=== PATIENT | female | born 1930 | race Caucasian/White ===

== ENCOUNTER 2020-06-07 12:05 | Inpatient (IN) ==
[2020-06-07 12:52] LABS: Basophils % 0.2 %
[2020-06-07 12:53] LABS: Eosinophils # 0.1 K/mcL (0.0-0.6); Eosinophils % 1.5 %; Hematocrit 16.5 % (35.3-44.9); Immature Granulocytes % 0.5 % (0-4); Lymphocytes # 0.6 K/mcL (0.6-4.6); Lymphocytes % 7.9 %; Mean Corpuscular HGB Conc 32.1 g/dL (31.6-35.5); Mean Corpuscular Hemoglobin 30.6 pg (28.0-33.3); Mean Corpuscular Volume 95.4 fL (83.0-100.0); Mean Platelet Volume 9.8 fL (9.4-12.4); Monocytes # 0.6 K/mcL (0.0-1.3); Monocytes % 6.9 %; Neutrophils # 6.7 K/mcL (1.6-8.9); Platelet Count 250 K/mcL (140-400); Red Blood Count 1.73 M/mcL (3.82-4.97); Red Cell Distribution Width 15.8 % (11.5-14.5); White Blood Count 8.1 K/mcL (4.3-11.1)
[2020-06-07 12:56] LABS: Hemoglobin 5.3 g/dL (11.5-15.4)
[2020-06-07 13:07] LABS: Calcium 9.7 mg/dL (8.6-10.3); Potassium 3.8 mEq/L (3.5-5.1)
[2020-06-07 13:10] LABS: Bilirubin,Urine Negative (Negative); Blood,Urine Negative (Negative); Clarity,Urine Clear (Clear); Color,Urine Light-Yellow (Yellow); Glucose,Urine (UA) Normal (Normal); Hyaline Casts,Urine Few per lpf (None Seen); Ketones,Urine Negative (Negative); Leukocyte Esterase,Urine Moderate (Negative); Mucus,Urine Few per lpf (None-Few); Nitrite,Urine Negative (Negative); Protein,Urine Trace mg/dL (Neg-Trace); RBC,Urine 0-3 per hpf (0-3); Specific Gravity,Urine 1.016 (1.010-1.025); Squamous Epithelial Cell,Urine Few per hpf (None-Few); Urobilinogen,Urine Normal (Normal); WBC,Urine 15-30 per hpf (0-3)
[2020-06-07 13:11] LABS: Troponin I 0.06 ng/mL (< 0.04)
[2020-06-07 13:13] LABS: INR 1.6; Prothrombin Time 18.6 Seconds (9.4-12.1)
[2020-06-07] MEDS ORDERED: Pantoprazole 40 MG VIAL IVP ONE (13:24)
[2020-06-07] MEDS ORDERED: Ondansetron 4 MG/2 ML VIAL IVP PRN (13:58)
[2020-06-07] MEDS ORDERED: Naloxone 0.4 MG/ML INJ IVP PRN (13:58)
[2020-06-07] MEDS ORDERED: 0.9 % Sodium Chloride 250 ML ONE ×2 (14:15→17:12)
[2020-06-07] MEDS ORDERED: Famotidine 20 MG TABLET PO PRN (14:57)
[2020-06-07 15:10] LABS: Troponin I 0.06 ng/mL (< 0.04)
[2020-06-07 15:31] LABS: Folate > 22.3 ng/mL (3.0-16.0); Vitamin B12 301 pg/mL (250-1100)
[2020-06-07] MEDS: Pantoprazole 40 MG VIAL IVP SCH (17:17)
[2020-06-07] MEDS ORDERED: Iron Sucrose Complex 400 MG in 0.9 % Sodium Chloride 250 ML IVPB ONE (18:56)
[2020-06-07] MEDS: Metoprolol XL (24 HR) Succ 50 MG TAB.ER.24H PO SCH (19:44)
[2020-06-08] MEDS: Pantoprazole 40 MG VIAL IVP SCH ×2 (05:54→17:13)
[2020-06-08 07:06] LABS: Hematocrit 23.7 % (35.3-44.9); Hemoglobin 7.8 g/dL (11.5-15.4)
[2020-06-08 07:07] LABS: Basophils % 0.3 %; Eosinophils # 0.1 K/mcL (0.0-0.6); Eosinophils % 1.9 %; Hematocrit 23.9 % (35.3-44.9); Hemoglobin 7.8 g/dL (11.5-15.4); Immature Granulocytes % 0.4 % (0-4); Lymphocytes # 0.9 K/mcL (0.6-4.6); Lymphocytes % 12.7 %; Mean Corpuscular HGB Conc 32.6 g/dL (31.6-35.5); Mean Corpuscular Hemoglobin 29.7 pg (28.0-33.3); Mean Corpuscular Volume 90.9 fL (83.0-100.0); Mean Platelet Volume 9.7 fL (9.4-12.4); Monocytes # 0.7 K/mcL (0.0-1.3); Monocytes % 9.8 %; Neutrophils # 5.5 K/mcL (1.6-8.9); Platelet Count 211 K/mcL (140-400); Red Blood Count 2.63 M/mcL (3.82-4.97); Red Cell Distribution Width 15.1 % (11.5-14.5); Segmented Neutrophils % 74.9 %; White Blood Count 7.3 K/mcL (4.3-11.1)
[2020-06-08 07:24] LABS: Calcium 9.1 mg/dL (8.6-10.3); Potassium 3.8 mEq/L (3.5-5.1)
[2020-06-08] MEDS: cloNIDine HCL 0.1 MG TABLET PO SCH (09:02)
[2020-06-08] MEDS: Furosemide 20 MG TABLET PO SCH (09:02)
[2020-06-08] MEDS: Metoprolol XL (24 HR) Succ 50 MG TAB.ER.24H PO SCH ×2 (09:02→20:25)
[2020-06-08] MEDS: Aspirin Enteric Coated 81 MG Tablet PO SCH (09:02)
[2020-06-08 11:02] LABS: Hematocrit 26.6 % (35.3-44.9); Hemoglobin 8.5 g/dL (11.5-15.4)
[2020-06-08 14:47] LABS: Hematocrit 25.2 % (35.3-44.9); Hemoglobin 8.4 g/dL (11.5-15.4)
[2020-06-09 04:29] LABS: Hematocrit 24.4 % (35.3-44.9); Hemoglobin 7.7 g/dL (11.5-15.4); Mean Corpuscular HGB Conc 31.6 g/dL (31.6-35.5); Mean Corpuscular Hemoglobin 29.3 pg (28.0-33.3); Mean Corpuscular Volume 92.8 fL (83.0-100.0); Platelet Count 223 K/mcL (140-400); Red Blood Count 2.63 M/mcL (3.82-4.97); Red Cell Distribution Width 15.2 % (11.5-14.5); White Blood Count 6.1 K/mcL (4.3-11.1)
[2020-06-09 04:45] LABS: Calcium 9.7 mg/dL (8.6-10.3); Potassium 3.9 mEq/L (3.5-5.1)
[2020-06-09] MEDS: Pantoprazole 40 MG VIAL IVP SCH ×2 (06:07→16:18)
[2020-06-09] MEDS: Aspirin Enteric Coated 81 MG Tablet PO SCH (08:43)
[2020-06-09] MEDS: Furosemide 20 MG TABLET PO SCH (08:44)
[2020-06-09] MEDS: Metoprolol XL (24 HR) Succ 50 MG TAB.ER.24H PO SCH ×2 (08:44→20:30)
[2020-06-09] MEDS: cloNIDine HCL 0.1 MG TABLET PO SCH (08:44)
[2020-06-09 12:28] LABS: Hematocrit 24.7 % (35.3-44.9); Hemoglobin 7.9 g/dL (11.5-15.4)
[2020-06-09] MEDS: calcitrioL 0.25 MCG CAPSULE PO SCH (16:18)
[2020-06-10 00:27] LABS: Hematocrit 23.5 % (35.3-44.9); Hemoglobin 7.4 g/dL (11.5-15.4)
[2020-06-10 02:49] LABS: Hematocrit 24.1 % (35.3-44.9); Hemoglobin 7.7 g/dL (11.5-15.4); Mean Corpuscular Hemoglobin 30.3 pg (28.0-33.3); Mean Corpuscular Volume 94.9 fL (83.0-100.0); Mean Platelet Volume 9.8 fL (9.4-12.4); Platelet Count 248 K/mcL (140-400); Red Blood Count 2.54 M/mcL (3.82-4.97); Red Cell Distribution Width 15.1 % (11.5-14.5); White Blood Count 7.1 K/mcL (4.3-11.1)
[2020-06-10] MEDS: Pantoprazole 40 MG VIAL IVP SCH (05:24)
[2020-06-10] MEDS: cloNIDine HCL 0.1 MG TABLET PO SCH (07:51)
[2020-06-10] MEDS: Aspirin Enteric Coated 81 MG Tablet PO SCH (07:51)
[2020-06-10] MEDS: Metoprolol XL (24 HR) Succ 50 MG TAB.ER.24H PO SCH ×2 (07:51→20:19)
[2020-06-10] MEDS: Furosemide 20 MG TABLET PO SCH (07:51)
[2020-06-10] MEDS ORDERED: Lidocaine -MPF 2% 2 ML VIAL ONE (14:10)
[2020-06-10] MEDS ORDERED: *HR* PHENYLEPHRINE 1,000 MCG/10 ML SYRINGE IVP ONE (15:04)
[2020-06-10] MEDS ORDERED: 0.9 % Sodium Chloride 500 ML ONE (15:41)
[2020-06-10] MEDS ORDERED: 0.9 % Sodium Chloride 500 ML IVC ONE (15:46)
[2020-06-10] MEDS ORDERED: *HR* Metoprolol 5 MG/5 ML VIAL IVP ONE (22:13)
[2020-06-11] MEDS ORDERED: Albumin 25% 25gram/100mL 25 GM/100 ML IV.SOLN IVPB ONE (01:21)
[2020-06-11] MEDS ORDERED: 0.9 % Sodium Chloride 250 ML IVC ONE (03:18)
[2020-06-11 06:16] LABS: Hematocrit 19.1 % (35.3-44.9); Mean Corpuscular HGB Conc 31.4 g/dL (31.6-35.5); Mean Corpuscular Hemoglobin 29.7 pg (28.0-33.3); Mean Corpuscular Volume 94.6 fL (83.0-100.0); Mean Platelet Volume 10.1 fL (9.4-12.4); Platelet Count 196 K/mcL (140-400); Red Blood Count 2.02 M/mcL (3.82-4.97); Red Cell Distribution Width 14.9 % (11.5-14.5)
[2020-06-11 06:28] LABS: White Blood Count 15.8 K/mcL (4.3-11.1)
[2020-06-11] MEDS ORDERED: 0.9 % Sodium Chloride 250 ML ONE ×3 (07:45→14:30)
[2020-06-11] MEDS: Metoprolol XL (24 HR) Succ 50 MG TAB.ER.24H PO SCH ×2 (08:03→20:17)
[2020-06-11] MEDS: Aspirin Enteric Coated 81 MG Tablet PO SCH (09:12)
[2020-06-11] MEDS: Pantoprazole 40 MG VIAL IVP SCH ×2 (09:12→18:47)
[2020-06-11 09:31] LABS: Hematocrit 20.1 % (35.3-44.9); Hemoglobin 6.3 g/dL (11.5-15.4)
[2020-06-11 09:38] LABS: Calcium 9.2 mg/dL (8.6-10.3); Potassium 4.4 mEq/L (3.5-5.1)
[2020-06-11] MEDS: calcitrioL 0.25 MCG CAPSULE PO SCH (15:28)
[2020-06-11 19:31] LABS: Hematocrit 32.3 % (35.3-44.9)
[2020-06-11 19:33] LABS: Hemoglobin 10.7 g/dL (11.5-15.4)
[2020-06-11 21:34] LABS: Hematocrit 32.5 % (35.3-44.9); Hemoglobin 10.9 g/dL (11.5-15.4)
[2020-06-12 01:17] LABS: Basophils % 0.1 %; Eosinophils % 0.1 %; Hematocrit 31.8 % (35.3-44.9); Hemoglobin 10.7 g/dL (11.5-15.4); Immature Granulocytes % 0.9 % (0-4); Mean Corpuscular HGB Conc 33.6 g/dL (31.6-35.5); Mean Corpuscular Hemoglobin 31.1 pg (28.0-33.3); Mean Corpuscular Volume 92.4 fL (83.0-100.0); Mean Platelet Volume 10.1 fL (9.4-12.4); Monocytes # 1.4 K/mcL (0.0-1.3); Monocytes % 6.8 %; Neutrophils # 17.6 K/mcL (1.6-8.9); Platelet Count 181 K/mcL (140-400); Red Blood Count 3.44 M/mcL (3.82-4.97); Red Cell Distribution Width 14.6 % (11.5-14.5); Segmented Neutrophils % 87.1 %; White Blood Count 20.2 K/mcL (4.3-11.1)
[2020-06-12 01:33] LABS: Calcium 9.7 mg/dL (8.6-10.3); Magnesium 1.3 mg/dL (1.6-2.6); Phosphorous 1.8 mg/dL (2.7-4.5); Potassium 4.2 mEq/L (3.5-5.1)
[2020-06-12 05:31] LABS: Hematocrit 32.2 % (35.3-44.9); Hemoglobin 10.6 g/dL (11.5-15.4)
[2020-06-12] MEDS: Pantoprazole 40 MG VIAL IVP SCH ×2 (06:53→17:03)
[2020-06-12 07:44] LABS: Bilirubin,Urine Negative (Negative); Blood,Urine Negative (Negative); Clarity,Urine Clear (Clear); Color,Urine Light-Yellow (Yellow); Glucose,Urine (UA) Normal (Normal); Ketones,Urine Negative (Negative); Leukocyte Esterase,Urine Moderate (Negative); Nitrite,Urine Negative (Negative); PH,Urine 6.5 pH Units (5.0-8.0); Protein,Urine Negative (Neg-Trace); RBC,Urine 0-3 per hpf (0-3); Specific Gravity,Urine 1.007 (1.010-1.025); Squamous Epithelial Cell,Urine Few per hpf (None-Few); Urobilinogen,Urine Normal (Normal)
[2020-06-12 08:01] LABS: Hematocrit 34.7 % (35.3-44.9); Hemoglobin 11.4 g/dL (11.5-15.4)
[2020-06-12] MEDS: Metoprolol XL (24 HR) Succ 50 MG TAB.ER.24H PO SCH ×2 (08:06→20:03)
[2020-06-13] MEDS: Pantoprazole 40 MG VIAL IVP SCH (05:39)
[2020-06-13 07:35] VITALS: BP 155/73
[2020-06-13] MEDS: Metoprolol XL (24 HR) Succ 50 MG TAB.ER.24H PO SCH (08:31)
[2020-06-13 10:12] LABS: Basophils % 0.1 %; Eosinophils # 0.2 K/mcL (0.0-0.6); Eosinophils % 1.5 %; Hematocrit 33.7 % (35.3-44.9); Hemoglobin 10.9 g/dL (11.5-15.4); Immature Granulocytes % 0.6 % (0-4); Lymphocytes # 0.8 K/mcL (0.6-4.6); Lymphocytes % 6.2 %; Mean Corpuscular HGB Conc 32.3 g/dL (31.6-35.5); Mean Corpuscular Hemoglobin 30.2 pg (28.0-33.3); Mean Corpuscular Volume 93.4 fL (83.0-100.0); Mean Platelet Volume 10.1 fL (9.4-12.4); Monocytes # 0.7 K/mcL (0.0-1.3); Monocytes % 5.7 %; Neutrophils # 10.6 K/mcL (1.6-8.9); Platelet Count 190 K/mcL (140-400); Red Blood Count 3.61 M/mcL (3.82-4.97); Red Cell Distribution Width 15.5 % (11.5-14.5); Segmented Neutrophils % 85.9 %; White Blood Count 12.3 K/mcL (4.3-11.1)
[2020-06-13 10:29] LABS: Calcium 9.9 mg/dL (8.6-10.3); Magnesium 1.9 mg/dL (1.6-2.6); Phosphorous 2.7 mg/dL (2.7-4.5); Potassium 4.1 mEq/L (3.5-5.1)
[2020-06-13] MEDS ORDERED: FLU Vac QV 20-21 (6Month+)/PF 0.5 ML SYRINGE IM ONE (11:34)
== END 2020-06-13 12:17 | disposition home or self-care (01) | DRG 377 ==
LOC: 2ANU 12:05 → EMEROOARM 12:05 → SUATTDRO 14:26 → 2ANU 15:50
PROVIDERS: ADMIT Internal Medicine; ATTEND Internal Medicine
PROC: ENDOEBX (2020-06-10 13:55)

== ENCOUNTER 2020-07-25 08:17 | Observation (INO) ==
[2020-07-25] MEDS ORDERED: cefTRIAXone 1,000 MG in Water for inj. (sterile) 10 ML IVP ONE (08:24)
[2020-07-25] MEDS ORDERED: 0.9 % Sodium Chloride 1,000 ML IVC ONE (08:24)
[2020-07-25 09:11] LABS: Basophils % 0.4 %; Eosinophils # 0.1 K/mcL (0.0-0.6); Eosinophils % 0.6 %; Hematocrit 40.2 % (35.3-44.9); Hemoglobin 12.5 g/dL (11.5-15.4); Immature Granulocytes % 0.3 % (0-4); Lymphocytes # 1.9 K/mcL (0.6-4.6); Lymphocytes % 23.6 %; Mean Corpuscular HGB Conc 31.1 g/dL (31.6-35.5); Mean Corpuscular Hemoglobin 30.2 pg (28.0-33.3); Mean Corpuscular Volume 97.1 fL (83.0-100.0); Mean Platelet Volume 10.3 fL (9.4-12.4); Monocytes # 0.7 K/mcL (0.0-1.3); Monocytes % 8.6 %; Neutrophils # 5.2 K/mcL (1.6-8.9); Platelet Count 201 K/mcL (140-400); Red Blood Count 4.14 M/mcL (3.82-4.97); Red Cell Distribution Width 17.1 % (11.5-14.5); Segmented Neutrophils % 66.5 %; White Blood Count 7.9 K/mcL (4.3-11.1)
[2020-07-25 09:28] LABS: Activated Partial Thrombo Time 29.7 Seconds (26.0-36.0); INR 1.3; Prothrombin Time 15.2 Seconds (9.4-12.1)
[2020-07-25 09:33] LABS: Albumin/Globulin Ratio 1.3 (1.1-2.2); Bilirubin,Direct 0.4 mg/dL (0.0-0.2); Bilirubin,Indirect 0.6 mg/dL (0.0-1.0); Calcium 10.9 mg/dL (8.6-10.3); Globulin 3.1 g/dL (2.4-3.5); Potassium 4.6 mEq/L (3.5-5.1); Total Protein 7.1 g/dL (6.4-8.9)
[2020-07-25 09:38] LABS: Troponin I 0.06 ng/mL (< 0.04)
[2020-07-25] MEDS ORDERED: Aspirin 81 MG TAB.CHEW PO ONE (09:38)
[2020-07-25 09:51] LABS: Bacteria,Urine Few per hpf (None-Few); Bilirubin,Urine Negative (Negative); Blood,Urine Negative (Negative); Clarity,Urine Clear (Clear); Color,Urine Yellow (Yellow); Glucose,Urine (UA) Normal (Normal); Hyaline Casts,Urine Moderate per lpf (None Seen); Ketones,Urine Negative (Negative); Leukocyte Esterase,Urine Negative (Negative); Mucus,Urine Few per lpf (None-Few); Nitrite,Urine Negative (Negative); Protein,Urine >=600 mg/dL (Neg-Trace); RBC,Urine 0-3 per hpf (0-3); Specific Gravity,Urine 1.027 (1.010-1.025); Squamous Epithelial Cell,Urine Few per hpf (None-Few)
[2020-07-25] MEDS ORDERED: Furosemide 40 MG/4 ML VIAL IVP ONE (10:27)
[2020-07-25] MEDS ORDERED: DilTIAZem 50 MG in 0.9 % Sodium Chloride 40 ML IVC SCH (11:00)
[2020-07-25] MEDS ORDERED: Naloxone 0.4 MG/ML INJ IVP PRN (11:47)
[2020-07-25] MEDS ORDERED: *HR* Dextrose 50 % in Water (Vial) 50 ML VIAL IVP PRN (12:45)
[2020-07-25] MEDS ORDERED: Dextrose Gel 15 GM/37.5 ML TUBE PO PRN ×2 (12:45)
[2020-07-25] MEDS ORDERED: D5% in Water 1,000 ML IVC PRN (12:45)
[2020-07-25] MEDS ORDERED: *HR* Metoprolol 5 MG/5 ML VIAL IVP PRN (13:03)
[2020-07-25 14:40] LABS: Estimated Average Glucose 151 mg/dl
[2020-07-25] MEDS ORDERED: Ondansetron 4 MG/2 ML VIAL IVP PRN (14:54)
[2020-07-25 15:08] LABS: Magnesium 1.7 mg/dL (1.6-2.6); Phosphorous 3.3 mg/dL (2.7-4.5)
[2020-07-25] MEDS ORDERED: *HR* Metoprolol 5 MG/5 ML VIAL IVP ONE (15:16)
[2020-07-25] MEDS: *HR* Heparin 5,000 UNIT/ML VIAL SQ SCH ×2 (15:40→20:54)
[2020-07-25] MEDS: Insulin LISPRO 300 UNITS/3 ML VIAL SQ SCH (17:10)
[2020-07-25] MEDS ORDERED: Insulin LISPRO 300 UNITS/3 ML VIAL SQ SCH (21:00)
[2020-07-26 04:24] LABS: Hematocrit 34.8 % (35.3-44.9); Hemoglobin 11.1 g/dL (11.5-15.4); Mean Corpuscular HGB Conc 31.9 g/dL (31.6-35.5); Mean Corpuscular Hemoglobin 31.2 pg (28.0-33.3); Mean Corpuscular Volume 97.8 fL (83.0-100.0); Mean Platelet Volume 10.8 fL (9.4-12.4); Platelet Count 148 K/mcL (140-400); Red Blood Count 3.56 M/mcL (3.82-4.97); Red Cell Distribution Width 17.2 % (11.5-14.5); White Blood Count 7.8 K/mcL (4.3-11.1)
[2020-07-26 04:37] LABS: Calcium 10.2 mg/dL (8.6-10.3); Potassium 4.7 mEq/L (3.5-5.1)
[2020-07-26] MEDS: *HR* Heparin 5,000 UNIT/ML VIAL SQ SCH (05:26)
[2020-07-26 07:36] VITALS: BP 148/84
[2020-07-26] MEDS: Insulin LISPRO 300 UNITS/3 ML VIAL SQ SCH (07:38)
[2020-07-26] MEDS ORDERED: Furosemide 20 MG/2 ML VIAL IVP SCH (09:00)
[2020-07-26] MEDS ORDERED: Furosemide 20 MG TABLET PO SCH (09:00)
[2020-07-26] MEDS ORDERED: Metoprolol XL (24 HR) Succ 50 MG TAB.ER.24H PO SCH (09:00)
[2020-07-26] MEDS ORDERED: Multivit/Ca/Min/Fe/FA 1 TAB TABLET PO SCH (09:00)
[2020-07-26] MEDS ORDERED: lisinopriL 5 MG TABLET PO SCH (09:00)
== END 2020-07-26 12:33 | disposition home or self-care (01) ==
LOC: EMEROOARM 08:17 → 3BNU 08:17
PROVIDERS: ADMIT Student in an Organized Health Care Education/Training Program; ATTEND Student in an Organized Health Care Education/Training Program

== ENCOUNTER 2020-09-17 17:21 | Observation (INO) ==
[2020-09-17 19:01] LABS: Basophils % 0.4 %
[2020-09-17 19:02] LABS: Hematocrit 36.8 % (35.3-44.9); Hemoglobin 11.8 g/dL (11.5-15.4); Immature Granulocytes % 0.4 % (0-4); Immature Platelets 5.8 % (1.1-6.1); Lymphocytes # 1.1 K/mcL (0.6-4.6); Lymphocytes % 21.9 %; Mean Corpuscular HGB Conc 32.1 g/dL (31.6-35.5); Mean Corpuscular Hemoglobin 29.9 pg (28.0-33.3); Mean Corpuscular Volume 93.4 fL (83.0-100.0); Mean Platelet Volume 11.2 fL (9.4-12.4); Monocytes # 0.6 K/mcL (0.0-1.3); Monocytes % 12.4 %; Neutrophils # 3.1 K/mcL (1.6-8.9); Platelet Count 119 K/mcL (140-400); Red Blood Count 3.94 M/mcL (3.82-4.97); Red Cell Distribution Width 14.7 % (11.5-14.5); Segmented Neutrophils % 64.9 %; White Blood Count 4.8 K/mcL (4.3-11.1)
[2020-09-17 19:21] LABS: Calcium 10.3 mg/dL (8.6-10.3)
[2020-09-17 19:24] LABS: Troponin I 0.07 ng/mL (< 0.04)
[2020-09-17] MEDS ORDERED: 0.9 % Sodium Chloride 500 ML IVC ONE (19:29)
[2020-09-17] MEDS ORDERED: Isovue-370 500 ML BOTTLE IVP ONE (19:29)
[2020-09-17] MEDS ORDERED: dexAMETHasone 4 MG TABLET PO STA (22:27)
[2020-09-17] MEDS ORDERED: Aspirin 81 MG TAB.CHEW PO ONE (22:28)
[2020-09-17] MEDS ORDERED: Azithromycin 500 MG in 0.9 % Sodium Chloride 250 ML IVPB ONE (22:52)
[2020-09-17] MEDS ORDERED: cefTRIAXone 1,000 MG in 0.9 % Sodium Chloride Mini Bag 100 ML IVPB ONE (22:52)
[2020-09-17] MEDS ORDERED: CefTRIAXone 1,000 MG VIAL ONE (23:47)
[2020-09-17] MEDS ORDERED: Naloxone 0.4 MG/ML INJ IVP PRN (23:53)
[2020-09-18 03:40] LABS: Calcium 9.6 mg/dL (8.6-10.3); Potassium 3.7 mEq/L (3.5-5.1)
[2020-09-18 03:56] LABS: Mean Corpuscular Hemoglobin 30.1 pg (28.0-33.3); Red Cell Distribution Width 14.7 % (11.5-14.5)
[2020-09-18 03:58] LABS: Hematocrit 32.2 % (35.3-44.9); Hemoglobin 10.6 g/dL (11.5-15.4); Mean Corpuscular HGB Conc 32.9 g/dL (31.6-35.5); Mean Corpuscular Volume 91.5 fL (83.0-100.0); Mean Platelet Volume 10.5 fL (9.4-12.4); Red Blood Count 3.52 M/mcL (3.82-4.97); White Blood Count 4.3 K/mcL (4.3-11.1)
[2020-09-18] MEDS ORDERED: *HR* Heparin 5,000 UNIT/ML VIAL SQ SCH (06:00)
[2020-09-18] MEDS ORDERED: *HR* Dextrose 50 % in Water (Vial) 50 ML VIAL IVP PRN (07:07)
[2020-09-18] MEDS ORDERED: Dextrose Gel 15 GM/37.5 ML TUBE PO PRN ×2 (07:07)
[2020-09-18] MEDS ORDERED: D5% in Water 1,000 ML IVC PRN (07:07)
[2020-09-18] MEDS ORDERED: *HR* Metoprolol 5 MG/5 ML VIAL IVP PRN (07:59)
[2020-09-18] MEDS ORDERED: Insulin LISPRO 300 UNITS/3 ML VIAL SUBQ SCH ×2 (12:00→21:00)
[2020-09-18] MEDS: Insulin LISPRO 300 UNITS/3 ML VIAL SUBQ SCH ×2 (12:20→16:47)
[2020-09-18] MEDS: Doxycycline 100 MG in 0.9 % Sodium Chloride Mini Bag 100 ML IVPB SCH (18:26)
[2020-09-18] MEDS: *HR* Heparin 5,000 UNIT/ML VIAL SQ SCH (18:27)
[2020-09-18] MEDS: Metoprolol XL (24 HR) Succ 50 MG TAB.ER.24H PO SCH (20:56)
[2020-09-18] MEDS ORDERED: cefTRIAXone 1,000 MG in Water for inj. (sterile) 10 ML IVP SCH (21:00)
[2020-09-18] MEDS ORDERED: dexAMETHasone 4 MG TABLET PO SCH (23:00)
[2020-09-18] MEDS ORDERED: Azithromycin 250 MG TABLET PO SCH (23:00)
[2020-09-19] MEDS: Doxycycline 100 MG in 0.9 % Sodium Chloride Mini Bag 100 ML IVPB SCH (06:04)
[2020-09-19] MEDS: *HR* Heparin 5,000 UNIT/ML VIAL SQ SCH ×2 (06:06→17:09)
[2020-09-19] MEDS: Metoprolol XL (24 HR) Succ 50 MG TAB.ER.24H PO SCH (08:15)
[2020-09-19] MEDS: Insulin LISPRO 300 UNITS/3 ML VIAL SUBQ SCH ×3 (08:18→17:07)
[2020-09-19] MEDS ORDERED: Aspirin Enteric Coated 81 MG Tablet PO SCH (09:00)
[2020-09-19] MEDS ORDERED: lisinopriL 5 MG TABLET PO SCH (09:00)
[2020-09-19] MEDS ORDERED: Furosemide 20 MG TABLET PO SCH (09:00)
[2020-09-19 11:49] VITALS: BP 128/66
[2020-09-19] MEDS ORDERED: calcitrioL 0.25 MCG CAPSULE PO SCH (17:18)
[2020-09-19] MEDS ORDERED: Doxycycline 100 MG CAPSULE PO SCH ×2 (18:00→21:00)
== END 2020-09-19 18:45 ==
LOC: EMEROOARM 17:21 → 2NENU 17:21 → SUATTDRO 23:53 → 2NENU 09-18 01:05
PROVIDERS: ADMIT Student in an Organized Health Care Education/Training Program; ATTEND Student in an Organized Health Care Education/Training Program